=== PATIENT | male | born 1960 | race Caucasian/White ===

== ENCOUNTER 2019-03-14 20:03 | Emergency (ER) | payer OTHER ==
[2019-03-14] MEDS: TETRACAINE 0.5% 4 ML OPH LEFT EYE (21:30)
[2019-03-14] MEDS: FLUORESCEIN STRIP LEFT EYE (21:30)
[2019-03-14] MEDS: OPHTHALMIC IRRIG SOLUTION 120 ML LEFT EYE (22:40)
== END 2019-03-14 22:46 | disposition home or self-care (01) ==
LOC: FTE 20:03
DX: H10.32 Unspecified acute conjunctivitis, left eye (principal)
CPT/HCPCS: 99283; Z7502